=== PATIENT | male | born 1980 | race Caucasian/White ===

== ENCOUNTER 2023-11-19 09:46 | Emergency (ER) | payer OTHER ==
[2023-11-19] MEDS ORDERED: Amoxicillin/Potassium Clav 875 MG TAB ONE (11:06)
[2023-11-19] MEDS ORDERED: Ketorolac Tromethamine 30 MG (1 mL) VIAL ONE ×2 (11:06→11:08)
[2023-11-19] MEDS ORDERED: Morphine 4 MG/ML VIAL ONE (11:06)
[2023-11-19] MEDS ORDERED: Gabapentin 300 MG CAP PO SCH (11:30)
== END 2023-11-19 11:55 | disposition home or self-care (01) ==
LOC: CSHERS 09:46
DX: H65.92 Unspecified nonsuppurative otitis media, left ear (principal); H73.92 Unspecified disorder of tympanic membrane, left ear; I10 Essential (primary) hypertension
CPT/HCPCS: 87081; 87430; 96372; 99283; J1885; J2270